=== PATIENT | male | born 1975 | race Caucasian/White ===

== ENCOUNTER 2025-01-09 18:15 | Emergency (ER) | payer BC, SELFPAY ==
--- NOTE | ~2025-01-09 | CT_ITS ---
CLINICAL HISTORY: left lower abd pain CT abdomen and pelvis with contrast Comparison: None provided Findings: No consolidation or effusion. Hepatic steatosis. Proximal sigmoid colon pericolonic inflammatory changes. No extraluminal fluid collection or free gas identified. The appendix is within normal limits. The prostate is within normal limits. The bones are intact. IMPRESSION: 1. Proximal sigmoid colon non complicated diverticulitis. Short-term follow-up is suggested to verify interval resolution. 2. Hepatic steatosis; nonalcoholic steatohepatitis versus viral hepatitis. This document has been electronically signed by: Solo De Luna MD on 01/09/2025 21:32:42
[2025-01-09 18:17] VITALS: BP 131/84; PULSE 105; RESP 18; TEMP 36.6; O2SAT 92; BMI 51.0
--- NOTE | 2025-01-09 18:17 | ED_ITS ---
HPI - General Adult General Chief complaint: Abdominal Pain Stated complaint: leftside abd pain Time Seen by Provider: 01/09/25 20:06 History of Present Illness HPI narrative: Patient is a 49-year-old male presents today with having abdominal pain. The pain is over the left lower quadrant. It is dull. There is no radiation. Patient is from home. No cough no congestion or respiratory symptoms. No diaphoresis. Related Data Previous Rx's ?Medication ?Instructions ?Recorded amoxicillin 875 mg-potassium 1 tab PO BID 10 days #20 tabs 01/09/25 clavulanate 125 mg tablet ondansetron 4 mg disintegrating 4 mg PO TID PRN nausea and 01/09/25 tablet vomiting 5 days #10 tabs Allergies Allergy/AdvReac Type Severity Reaction Status Date / Time No Known Allergies Allergy Verified 01/09/25 18:18 Review of Systems 2 Review of Systems: Positive abdominal pain Yes all other systems are reviewed and are negative PMFSH Past Medical History Attestation statement: The following information was validated with the patient. Social History Social History Advance Directives: No Advance Directives Information Provided: No Physical Exam ED Exam Exam: Appearance: Alert. Oriented X3. No acute distress. Eyes: Pupils equal, round and reactive to light. ENT: Pharynx normal. Neck: Normal inspection. Neck supple. No lymph nodes noted. No crepitus CVS: Normal heart rate and rhythm. Pulses normal. Normal S1 and S2 Respiratory: No respiratory distress. Breath sounds normal. No Wheezing. No rales Abdomen: Soft. Mild left lower quadrant tenderness No rigidity. No distention. good BS x4 Skin: Skin warm and dry. Normal skin color. Normal skin turgor. Extremities: No lower extremity edema. Neurovascular intact to all extremities. No Lacerations. No Rash Neuro: Oriented X 3. No motor deficit. No sensory deficit. Moving all extermities. No slurred speech Vital Signs: Vital Signs - 24 hr 01/09/25 18:17 01/09/25 19:47 Temperature 98 F Pulse Rate 105 H 97 Respiratory Rate 18 18 Blood Pressure 131/84 113/65 Pulse Oximetry 92 96 Oxygen Delivery Method Room Air Room Air BMI result Body Mass Index 51.0 Course Course Course Narrative: Rapid medical examination performed in triage by Natalia Sandoval PA-C. Patient is a 49 year old assigned male at presenting to the emergency department with abdominal pain. Detailed physical exam and review of systems are deferred to the welder apprentice gas. Labs ordered. Patient placed back in the waiting room pending room availability and results. Medications Administered Discontinued Medications Generic Name Dose Route Start Last Admin Trade Name Car PRN Reason Stop Dose Admin Sodium Chloride 1,000 mls @ 999 mls/hr 01/09/25 20:30 01/09/25 20:34 Ns IV 01/09/25 21:30 999 mls/hr .Q1H1M DAVE Administration Iohexol 100 ml 01/09/25 20:47 01/09/25 20:51 Iohexol 350 Mg/Ml 100 Ml Infus..Btl IV 01/09/25 20:48 100 ml ONCE ONE Administration Ketorolac Tromethamine 15 mg 01/09/25 20:23 01/09/25 20:36 Ketorolac Tromethamine 15 Mg/Ml Vial IVPUSH 01/09/25 20:24 15 mg ONCE ONE Administration Ondansetron HCl 4 mg 01/09/25 20:24 01/09/25 20:37 Ondansetron Hcl 4 Mg/2 Ml Vial IVPUSH 01/09/25 20:25 4 mg ONCE ONE Administration Medical Decision Making Medical Decision Making [facility] Narrative: Positive abdominal pain over the left lower quadrant for the last 2 days. Intermittent on and off no specific trigger it is dull. History of kidney stone in the past. CT scan of the abdomen pelvis was done. Radiology's interpretation shows a diverticulitis there is no abscess is no perforation patient's well-appearing white count is 12 electrolytes are normal. Discussed with patient. Will require close follow-up. Will start patient on antibiotics. A dose of Rocephin and Flagyl was given. Will start patient on Augmentin. Differential Diagnosis Differential Diagnoses: The differential diagnosis associated with the presentation includes Diverticulitis versus kidney stone versus obstruction Admission/Observation Consideration of admission/observation: Escalation of care including admission/observation considered Given overall well appearance non complicated CT will discharge home Lab Data [facility] Lab Attestation statement: I reviewed the patient's lab results. 01/09/25 18:37 01/09/25 18:37 Labs: Lab Results 01/09/25 01/09/25 Range/Units 18:37 19:45 WBC 12.2 H (4.8-10.8) X10*3/uL RBC 5.32 (4.60-5.80) X10*6/uL Hgb 16.3 (14.0-18.0) g/dl Hct 45.0 (42.0-52.0) % MCV 84.6 (80.0-98.0) fL MCH 30.6 (27.0-33.0) pg MCHC 36.2 H (31.0-36.0) g/dl RDW 13.0 (11.0-16.0) % Plt Count 207 (160-400) X10*3/uL MPV 10.7 (9.4-12.4) fL Immature Gran % (Auto) 0.3 (0.0-0.4) % Neut % (Auto) 66.9 (45-73) % Lymph % (Auto) 20.9 (20-40) % Love % (Auto) 10.3 (2-11) % Eos % (Auto) 1.3 (0-4) % Baso % (Auto) 0.3 (0-2) % Lymph # (Auto) 2.5 (1.2-4.9) X10*3/uL Love # (Auto) 1.3 H (0.1-1.2) X10*3/uL Eos # (Auto) 0.2 (0.0-0.4) X10*3/uL Baso # (Auto) 0.0 (0.0-0.2) X10*3/uL Abs Immat Gran (auto) 0.04 H (0.00-0.03) X10*3/uL Absolute Neuts (auto) 8.1 (2.0-8.3) x10*3/uL Absolute Nucleated RBC 0.000 (0.0-0.012) X10*3/uL Nucleated RBC % (auto) 0.0 (0.0-0.2) /100WBC Sodium 144 (135-145) mmol/L Potassium 3.6 (3.3-5.1) mmol/L Chloride 108 (96-108) mmol/L Carbon Dioxide 23 (22-29) mmol/L Anion Gap 17 (12-20) BUN 21 H (9-16) mg/dL Creatinine 1.02 (0.5-1.4) mg/dL Estim Creat Clear Calc 135.6 Estimated GFR > 60 Random Glucose 109 (60-115) mg/dL Calcium 9.1 (8.4-10.2) mg/dL Magnesium 2.0 (1.6-2.6) mg/dL Total Bilirubin 0.6 (0.0-1.0) mg/dL AST 27 (5-37) U/L ALT 42 H (0-40) U/L Alkaline Phosphatase 79 (39-117) U/L Total Protein 7.1 (6.5-8.0) g/dL Albumin 4.5 (3.5-5.0) g/dL Urine Color Yellow Urine Appearance Clear Urine pH 5.5 (5.0-9.0) Ur Specific [place] >= 1.030 H (1.005-1.025) Urine Protein Negative (Neg-Trace) mg/dL Urine Glucose (UA) Negative (Negative) mg/dL Urine Ketones Trace (Negative) mg/dL Urine Blood Negative (Negative) Urine Nitrite Negative (Negative) Ur Leukocyte Esterase Negative (Negative) Independent Interpretation I performed an independent interpretation of an: CT Scan (No obstruction no abscess) Radiology Impression Discussion of test interpretation with radiology: I have reviewed the radiologist's reading. Prescription Management I considered prescription management with: Pain Medication and Antibiotic Social Determinants Patient?s care significantly limited by Social Determinants of Health including: Problems related to primary support group Discharge Plan Discharge Clinical Impression: Diverticulitis Patient Disposition: Home, Self-Care Instructions: Diverticulitis (DC), Diverticulitis Diet (ED) Prescriptions: New amoxicillin-pot clavulanate 875-125 mg tablet 1 tab PO BID 10 Days Qty: 20 0RF ondansetron 4 mg tablet,disintegrating 4 mg PO TID PRN (Reason: nausea and vomiting) 5 Days Qty: 10 0RF Referrals: Physician,Ginny Ballard [Primary Care Provider, Medical] - 01/13/25 Wicho Carlin MD [Physician, Gastroenterology] - 01/13/25 Print Language: Italian
[2025-01-09 18:41] LABS: MANUAL DIFF FLAG NO
[2025-01-09 18:42] LABS: Hematocrit 45.0 % (42.0-52.0); Hemoglobin 16.3 g/dl (14.0-18.0); Imm Gran Abs Auto 0.04 X10*3/uL (0.00-0.03); Imm Gran Pct Auto 0.3 % (0.0-0.4); Lymphocytes Absolute Auto 2.5 X10*3/uL (1.2-4.9); Mean Corpuscular HGB Conc 36.2 g/dl (31.0-36.0); Mean Corpuscular Hemoglobin 30.6 pg (27.0-33.0); Mean Corpuscular Volume 84.6 fL (80.0-98.0); NRBC Abs Auto 0.000 X10*3/uL (0.0-0.012); NRBC Pct Auto 0.0 /100WBC (0.0-0.2); Platelet Count 207 X10*3/uL (160-400); Red Blood Count 5.32 X10*6/uL (4.60-5.80); White Blood Count 12.2 X10*3/uL (4.8-10.8)
[2025-01-09 18:57] LABS: Alanine Aminotransferase 42 U/L (0-40); Albumin Level 4.5 g/dL (3.5-5.0); Alkaline Phosphatase 79 U/L (39-117); Anion Gap 17 (12-20); Aspartate Amino Transferase 27 U/L (5-37); Blood Urea Nitrogen 21 mg/dL (9-16); Calcium 9.1 mg/dL (8.4-10.2); Carbon Dioxide 23 mmol/L (22-29); Chloride 108 mmol/L (96-108); Creatinine Clr Calc Pharmacy 135.6; Estimated Glomerular Filt Rate > 60; Magnesium 2.0 mg/dL (1.6-2.6); Potassium 3.6 mmol/L (3.3-5.1); Sodium 144 mmol/L (135-145); Total Protein 7.1 g/dL (6.5-8.0)
[2025-01-09 19:47] VITALS: BP 113/65; PULSE 97; RESP 18; O2SAT 96
[2025-01-09 19:56] LABS: Appearance Urine Clear; Glucose Urine UA Negative (Negative); PH 5.5 (5.0-9.0); Specific Gravity - Urine >= 1.030 (1.005-1.025)
--- OUTSIDE RECORDS SUMMARY | 2025-01-09 20:02 | XMS_ITS | Patient Health Record ---
[facility] Organization [facility] Address [address] [place] [address] Care Team Providers Care Oil Burner Servicer And Installer Name Role Phone Janusz Willard MD Primary Care Provider Chester Joseph Unavailable [phone] Reason For Referral No Information Problems Problem Type SNOMED Code ICD Code Onset Dates Problem Status W/U Status Risk Notes Problem Paronychia (47302222) Paronychia (681.11) Active confirmed Problem Abscess /Cellulitis (682.7) Active confirmed Problem Ingrowing nail (634450363) Ingrowing Nail (703.0) Active confirmed Plan Of Treatment Pending Test Test Name Order Date 73143- Debride <25 sq cm 12/21/2014 99030 I&D ABSCESS- SIMPLE,SINGLE 015 Insurance Providers Payer Name Payer Address Payer Phone Subscriber Number Group Number Insured Name Patient Relationship to Insured Coverage Start Date Coverage End Date [facility] [address] [place] [address] [id number] ConchaSethnn Self - patient is the insured Medical (General) History Medical History History ICD Code Back,Hip,and Knee pain Broken bones Measles Chicken pox
[2025-01-09] MEDS: iohexoL 350 MG/ML 100 ML INFUS..BTL IV (20:51)
--- NOTE | 2025-01-09 21:11 | PC.NURSE ---
Back documentation 20G IV placed in right forearm, Call within reach pt medicated per MAR waiting CT scan.
--- NOTE | 2025-01-09 21:29 | PC.NURSE ---
IVF still running.
[2025-01-09 22:06] VITALS: BP 113/65; PULSE 97; RESP 18; TEMP 37; O2SAT 96
[2025-01-09 22:08] VITALS: BP 98/74; PULSE 87; RESP 16; O2SAT 98
== END 2025-01-09 22:10 | disposition home or self-care (01) ==
PROVIDERS: Physician Assistant Medical; Emergency Provider Emergency Medicine Emergency Medical Services
DX: K57.92 Diverticulitis of intestine, part unspecified, without perforation or abscess without bleeding (principal); R10.32 Left lower quadrant pain; Z63.9 Problem related to primary support group, unspecified
CPT/HCPCS: 36415; 74177; 80053; 81003; 83735; 85025; 96361; 96374; 96375; 99284; J0696; J1885; J2405; Q9967

== ENCOUNTER → 2025-01-09 20:23 | Outpatient (BNV) | payer BC, SELFPAY | PROVIDERS: Emergency Provider Emergency Medicine Emergency Medical Services; Visit Provider Radiology Diagnostic Radiology | DX: K57.32 Diverticulitis of large intestine without perforation or abscess without bleeding (principal); K76.0 Fatty (change of) liver, not elsewhere classified | CPT/HCPCS: 74177 ==

== ENCOUNTER 2025-03-25 08:36 | Emergency (ER) | payer BC, SELFPAY ==
--- NOTE | ~2025-03-25 | XR_ITS ---
CLINICAL HISTORY: fall right rib pain 1 view chest x-ray Comparison: None provided Findings: The lungs are clear. Heart size is normal. No acute fracture. IMPRESSION: No acute cardiopulmonary findings. This document has been electronically signed by: Karlos Rodriguez MD on 03/25/2025 10:09:56
[2025-03-25 08:40] VITALS: BP 148/71; PULSE 60; RESP 16; TEMP 36.1; O2SAT 100; BMI 46.7
--- OUTSIDE RECORDS SUMMARY | 2025-03-25 08:54 | XMS_ITS | Patient Health Record ---
Author Organization [facility] Address [address] [place] [address] Care Team Providers Care Blueprint Maker Name Role Phone Janusz Willard MD Primary Care Provider Chester Padilla Unavailable [phone] Reason For Referral No Information Problems Problem Type SNOMED Code ICD Code Onset Dates Problem Status W/U Status Risk Notes Problem Paronychia (08507502) Paronychia (681.11) Active confirmed Problem Abscess /Cellulitis (682.7) Active confirmed Problem Ingrowing nail (099047212) Ingrowing Nail (703.0) Active confirmed Plan Of Treatment Pending Test Test Name Order Date 73680- Debride <25 sq cm 12/21/2014 11716 I&D ABSCESS- SIMPLE,SINGLE 015 Insurance Providers Payer Name Payer Address Payer Phone Subscriber Number Group Number Insured Name Patient Relationship to Insured Coverage Start Date Coverage End Date [facility] [employer] [facility] [address] [place] [address] [id number] ConchaDwaine Self - patient is the insured Medical (General) History Medical History History ICD Code Back,Hip,and Knee pain Broken bones Measles Chicken pox
--- NOTE | 2025-03-25 09:43 | ED.FALL ---
[facility] - Fall General Chief Complaint: Fall Stated Complaint: right side pain from fall on saturday Time Seen by Provider: 03/25/25 09:26 Source: patient Mode of arrival: ambulatory Limitations: no limitations History of Present Illness ED Provider: [facility] Narrative: 50-year-old male had a trip and fall 4 days ago landed on the right side, reporting pain over the mid lateral right ribs worse with movement and deep breath, states has been using anti-inflammatories, reported some cough with a yellow sputum for the past 2 days, no LOC no head injury, not on blood thinners, no history of DVTs and no PE risk factors elicited. Related Data Previous Rx's ?Medication ?Instructions ?Recorded ondansetron 4 mg disintegrating 4 mg PO TID PRN nausea and 01/09/25 tablet vomiting 5 days #10 tabs amoxicillin 875 mg-potassium 1 tab PO Q12H 10 days #20 tabs 01/10/25 clavulanate 125 mg tablet lidocaine 5 % topical patch 1 patch topical DAILY PRN pain #15 03/25/25 ea Allergies Allergy/AdvReac Type Severity Reaction Status Date / Time No Known Allergies Allergy Verified 03/25/25 08:42 Review of Systems Constitutional: Constitutional: Reports as per [facility] Social History Social History Advance Directives: No Advance Directives Information Provided: Yes Physical Exam Exam: Exam: ?General: ??looks age appropriate ?CV: RRR, no obvious murmurs appreciated ?Resp: ?No wheezing rales rhonchi no stridor moving air well, tenderness along right lateral chest without subcutaneous emphysema bruising there was no rashes to the area Abd: ?Bowel sounds are present, no tenderness no rebound no rigidity MSK: FROM, strength 5/5 all extremities Skin: Warm, dry, intact, ?Neuro: ?Alert and oriented x3, moving upper and lower extremities symmetrically, no obvious facial asymmetry noted, cranial nerves 2-12 intact Vital Signs: Vital Signs: Last Vital Signs Temp 97 F 03/25/25 08:40 Pulse 60 03/25/25 08:40 Resp 16 03/25/25 08:40 BP 148/71 H 03/25/25 08:40 Pulse Ox 100 03/25/25 08:40 O2 Del Method Room Air 03/25/25 08:40 BMI result Body Mass Index 46.7 Medical Decision Making Medical Decision Making MDM Narrative: 9:52 AM 03/25/2025 (Dr. Charlie Quan): Well-appearing, we will obtain x-rays to evaluate for obvious rib fractures, PERC negative, not the pain to be associated with a ACS, No evidence for shingles This is a nonsyncopal fall 4 days ago Differential Diagnosis Differential Diagnoses: The differential diagnosis associated with the presentation includes (Contusion, rib fracture, pneumothorax, PE, neuralgia) Admission/Observation Consideration of admission/observation: Escalation of care including admission/observation considered Independent Interpretation I performed an independent interpretation of an: Plain X-Ray (My independent chest xray interpretation: Lungs: Lungs are clear bilaterally without evidence of focal consolidation, pleural effusion, or pneumothorax. Cardiac silhouette is unremarkable, no obvious mediastinal widening, no obvious bony abnormalities such as fractures. Impression: Normal chest X-r) Discharge Plan Discharge Clinical Impression: Contusion of rib on right side Additional Instructions: Chest x-ray without obvious rib fractures ( or pneumonia), you likely have rib contusion, unfortunately these may take a little while to heal, I recommend lidocaine patches to the area, and continue with anti-inflammatories ibuprofen 400 mg every 6 hours as needed for pain and you can also add Tylenol 975 mg I am going to prescribe lidocaine patches he just put it over the area that hurts the most Prescriptions: New lidocaine 5 % adhesive patch,medicated 1 patch topical DAILY PRN (Reason: pain) Qty: 15 0RF Rx Instructions: leave on most painful area for up to 12 hrs No Action ondansetron 4 mg tablet,disintegrating 4 mg PO TID PRN (Reason: nausea and vomiting) 5 Days Qty: 10 0RF amoxicillin-pot clavulanate 875-125 mg tablet 1 tab PO Q12H 10 Days Qty: 20 0RF Print Language: Gambian
[2025-03-25 10:05] VITALS: BP 133/72; PULSE 65; RESP 16; TEMP 36.6; O2SAT 95
[2025-03-25] MEDS: Lidocaine 4 % Patch ADH..PATCH 1 PATCH TRANSDERMA (10:11)
[2025-03-25 10:26] LABS: Resp Syncy Virus RNA Qual PCR NEGATIVE (Negative); SARS COV2 PCR INHOUSE NEGATIVE (Negative)
== END 2025-03-25 10:58 | disposition home or self-care (01) ==
PROVIDERS: Emergency Provider Emergency Medicine
DX: S20.211A Contusion of right front wall of thorax, initial encounter (principal); W01.0XXA Fall on same level from slipping, tripping and stumbling without subsequent striking against object, initial encounter; Y93.9 Activity, unspecified; Y92.9 Unspecified place or not applicable; Y99.9 Unspecified external cause status; Z03.818 Encounter for observation for suspected exposure to other biological agents ruled out
CPT/HCPCS: 71045; 87637; 96372; 99283; 99284; J1885; J8540

== ENCOUNTER → 2025-03-25 09:39 | Outpatient (BNV) | payer BC, SELFPAY | PROVIDERS: Emergency Provider Emergency Medicine; Visit Provider Radiology Vascular & Interventional Radiology | DX: R07.89 Other chest pain (principal); Z04.3 Encounter for examination and observation following other accident | CPT/HCPCS: 71045 ==